=== PATIENT | male | born 1950 | race Caucasian/White ===

== ENCOUNTER 2021-03-22 13:13 | Emergency (ER) | payer OTHER ==
[2021-03-22 14:10] LABS: Absolute Lymphocytes (CBC) 1.8 K/uL (0.7-4.9); Hematocrit 44.7 % (39.6-49.0); Lymphocytes % 15.9 % (15.3-44.8); MPV 8.3 fL (7.6-11.3)
[2021-03-22 14:19] LABS: Protime INR 0.99
[2021-03-22 14:31] LABS: ALT/SGPT 29 U/L (12-78); AST/SGOT 22 U/L (15-37); Albumin 3.5 g/dL (3.4-5.0); Alkaline Phosphatase 75 U/L (45-117); BUN Blood Urea Nitrogen 33 mg/dL (7-18); Bicarbonate 27 mmol/L (21-32); Bilirubin Direct < 0.1 mg/dL (0-0.2); Bilirubin Total 0.4 mg/dL (0.2-1.0); Glucose Level 236 mg/dL (74-106); NT PRO-BNP 77 pg/mL (<125); Potassium 3.5 mmol/L (3.5-5.1); Protein, Total 6.9 g/dL (6.4-8.2); Sodium Level 139 mmol/L (136-145); Troponin (Emerg Dept Use Only) 0.03 ng/mL (0.0-0.045)
--- NOTE | 2021-03-22 15:35 | RAD REPORT ---
EXAM DESCRIPTION: RAD - Chest Single View - 03/22/2021 2:56 pm CLINICAL HISTORY: CHEST PAIN Chest pain. COMPARISON: No comparisons FINDINGS: Portable technique limits examination quality. The lungs are grossly clear. The heart is normal in size. No displaced fractures. IMPRESSION: No acute intrathoracic process suspected.
--- NOTE | 2021-03-22 20:27 | ER ---
Nurse's Notes [facility] Name: David Knight Age: 70 yrs Sex: Male : 1950 Arrival Date: 03/22/2021 Time: 13:19 Bed 10 Private MD: Diagnosis: Chest pain Presentation: 03/22 13:33 Chief complaint: Patient states: Midsternal chest pain radiates to Right arm that began vg1 yesterday. Denies NVD and SOB. States lightheartedness and and Right hand tingling. States currently has a AAA. Coronavirus screen: Vaccine status: Patient reports receiving the 2nd dose of the covid vaccine. Client denies travel out of the [place] in the last 14 days. Ebola Screen: Patient negative for fever greater than or equal to 101.5 degrees Fahrenheit, and additional compatible Ebola Virus Disease symptoms. Initial Sepsis Screen: Does the patient meet any 2 criteria? No. Patient's initial sepsis screen is negative. Does the patient have a suspected source of infection? No. Patient's initial sepsis screen is negative. Risk Assessment: Do you want to hurt yourself or someone else? Patient reports no desire to harm self or others. Onset of symptoms was March 21, 2021. 13:33 Method Of Arrival: Ambulatory vg1 13:33 Acuity: JONELLE 2 vg1 Triage Assessment: 13:36 General: Appears in no apparent distress. uncomfortable, Behavior is calm, cooperative. vg1 Pain: Complains of pain in mid-sternal area Pain radiates to right arm Pain currently is 6 out of 10 on a pain scale. Cardiovascular: Patient's skin is warm and dry. Historical: - Allergies: 13:36 No Known Allergies; vg1 - Home Meds: 13:36 glipizide Oral [Active]; atorvastatin oral [Active]; vg1 - PMHx: 13:36 Abdominal aortic aneurysm; Diabetes mellitus; Enlarged Prostate; vg1 - Immunization history:: Client reports receiving the 2nd dose of the Covid vaccine. - Social history:: Smoking status: Patient reports the use of cigarette tobacco products, denies chronic smoking, but will smoke occasionally. Screenin:48 Abuse screen: Denies threats or abuse. Denies injuries from another. Nutritional sm5 screening: No deficits noted. Tuberculosis screening: No symptoms or risk factors identified. Fall Risk None identified. Assessment: 20:49 Pain: Pain began 1 day ago. sm5 20:49 Pain: Complains of pain in right arm and chest and mid-sternal area. Neuro: No deficits sm5 noted. Level of Consciousness is awake, alert, Oriented to person, place, time, situation. Cardiovascular: Reports chest pain, Capillary refill < 3 seconds Patient's skin is warm and dry. Vital Signs: 13:33 BP 133 / 81; Pulse 84; Resp 18; Temp 97.7; Pulse Ox 97% ; Weight 101.15 kg; Height 5 vg1 ft. 10 in. (177.80 cm); Pain 6/10; 17:22 BP 120 / 76; Pulse 78; Resp 16; Temp 99.1(O); Pulse Ox 100% on R/A; mh5 20:44 BP 123 / 81; Pulse 71; Resp 16; Temp 98.2(O); Pulse Ox 98% ; lt3 13:33 Body Mass Index 32.00 (101.15 kg, 177.80 cm) vg1 ED Course: 13:19 Patient arrived in ED. am2 13:36 Triage completed. vg1 13:36 Arm band placed on. EKG completed in triage. Results shown to MD. vg1 13:56 Initial lab(s) drawn, by mn, sent to lab. vg1 14:55 XRAY Chest (1 view) In Process Unspecified. EDMS 16:26 Andrae Newton MD is Attending Physician. kdr 16:48 Troponin (Emerg Dept Use Only) Sent. mh5 16:48 Troponin (emerg Dept Use Only) Sent. 5 19:29 Attending Physician role handed off by Andrae Newton MD pkl 19:29 León Pimentel MD is Attending Physician. pkl 20:48 Patient has correct armband on for positive identification. Bed in low position. Call sm5 light in reach. Side rails up X2. monitor car operator on. Pulse ox on. NIBP on. 20:49 No provider procedures requiring assistance completed. Patient did not have IV access 5 during this emergency room visit. Patient maintains SpO2 saturation greater than 95% on room air. Administered Medications: No medications were administered Outcome: 20:26 Discharge ordered by . pkl 20:50 Discharged to home ambulatory. sm5 20:50 Condition: good 20:50 Discharge instructions given to patient, Instructed on discharge instructions, follow up and referral plans. Demonstrated understanding of instructions, follow-up care. 20:50 Patient left the ED. 5 Signatures: Dispatcher [employer] EDLeón Sosa MD MD pkl Rittger, Kevin, MD MD kdr Martinez, Maria 5 Norma Lopez Victoria, RN RN 1 Louise Durbin RN RN 5 Mary Carmen Garcia 3 Corrections: (The following items were deleted from the chart) 13:38 13:36 Home Meds: None; vg1 vg1 13:48 13:33 Acuity: JONELLE 3 vg1 vg1 20:49 20:49 Pain: Pain began [place] [id number]
--- NOTE | 2021-03-22 20:27 | EDPHYS ---
Physician Documentation [facility] Name: David Knight Age: 70 yrs Sex: Male : 1950 Arrival Date: 03/22/2021 Time: 13:19 Bed 10 Private MD: ED Physician León Pimentel HPI: 03/22 18:44 This 70 yrs old Male presents to ER via Ambulatory with complaints of Chest Pain. kdr 18:44 Patient states that he has been having chest pain in his sternum and right anterior kdr chest wall since yesterday. He has not had this kind of pain before. He denies nausea vomiting or shortness of breath. He has had an occasional episode of lightheadedness and tingling in his right hand but otherwise states that he has not had any other associated signs or symptoms. He also notes that he has been previously diagnosed with a AAA however it is less than 5 cm and is currently not being considered for intervention.. Historical: - Allergies: 13:36 No Known Allergies; vg1 - Home Meds: 13:36 glipizide Oral [Active]; atorvastatin oral [Active]; vg1 - PMHx: 13:36 Abdominal aortic aneurysm; Diabetes mellitus; Enlarged Prostate; vg1 - Immunization history:: Client reports receiving the 2nd dose of the Covid vaccine. - Social history:: Smoking status: Patient reports the use of cigarette tobacco products, denies chronic smoking, but will smoke occasionally. ROS: 18:44 Constitutional: Negative for fever, chills, and weight loss, Eyes: Negative for injury, kdr pain, redness, and discharge, ENT: Negative for injury, pain, and discharge, Neck: Negative for injury, pain, and swelling, Respiratory: Negative for shortness of breath, cough, wheezing, and pleuritic chest pain, Abdomen/GI: Negative for abdominal pain, nausea, vomiting, diarrhea, and constipation, Back: Negative for injury and pain, : Negative for injury, bleeding, discharge, and swelling, MS/Extremity: Negative for injury and deformity, Skin: Negative for injury, rash, and discoloration, Neuro: Negative for headache, weakness, numbness, tingling, and seizure activity. Psych: Negative for depression, anxiety, suicide ideation, homicidal ideation, and hallucinations, Allergy/Immunology: Negative for hives, rash, and allergies, Endocrine: Negative for neck swelling, polydipsia, polyuria, polyphagia, and marked weight changes, Hematologic/Lymphatic: Negative for swollen nodes, abnormal bleeding, and unusual bruising. 18:44 Cardiovascular: Positive for chest pain, Negative for edema, orthopnea, palpitations, paroxysmal nocturnal dyspnea. Exam: 18:44 Constitutional: This is a well developed, well nourished patient who is awake, alert, kdr and in no acute distress. Head/Face: Normocephalic, atraumatic. Eyes: Pupils equal round and reactive to light, extra-ocular motions intact. Lids and lashes normal. Conjunctiva and sclera are non-icteric and not injected. Cornea within normal limits. Periorbital areas with no swelling, redness, or edema. Neck: Trachea midline, no thyromegaly or masses palpated, and no cervical lymphadenopathy. Supple, full range of motion without nuchal rigidity, or vertebral point tenderness. No Meningismus. Chest/axilla: Normal chest wall appearance and motion. Nontender with no deformity. No lesions are appreciated. Cardiovascular: Regular rate and rhythm with a normal S1 and S2. No gallops, murmurs, or rubs. Normal PMI, no JVD. No pulse deficits. Respiratory: Lungs have equal breath sounds bilaterally, clear to auscultation and percussion. No rales, rhonchi or wheezes noted. No increased work of breathing, no retractions or nasal flaring. Abdomen/GI: Soft, non-tender, with normal bowel sounds. No distension or tympany. No guarding or rebound. No evidence of tenderness throughout. Back: No spinal tenderness. No costovertebral tenderness. Full range of motion. Skin: Warm, dry with normal turgor. Normal color with no rashes, no lesions, and no evidence of cellulitis. MS/ Extremity: Pulses equal, no cyanosis. Neurovascular intact. Full, normal range of motion. Neuro: Awake and alert, GCS 15, oriented to person, place, time, and situation. Cranial nerves II-XII grossly intact. Motor strength 5/5 in all extremities. Sensory grossly intact. Cerebellar exam normal. Normal gait. Psych: Awake, alert, with orientation to person, place and time. Behavior, mood, and affect are within normal limits. 18:44 Chest/axilla: Inspection: normal, Palpation: Patient has exacerbation of his right anterior chest wall discomfort with movement of his right arm upward. Vital Signs: 13:33 BP 133 / 81; Pulse 84; Resp 18; Temp 97.7; Pulse Ox 97% ; Weight 101.15 kg; Height 5 vg1 ft. 10 in. (177.80 cm); Pain 6/10; 17:22 BP 120 / 76; Pulse 78; Resp 16; Temp 99.1(O); Pulse Ox 100% on R/A; mh5 20:44 BP 123 / 81; Pulse 71; Resp 16; Temp 98.2(O); Pulse Ox 98% ; lt3 13:33 Body Mass Index 32.00 (101.15 kg, 177.80 cm) vg1 MDM: 18:44 Data reviewed: vital signs, nurses notes, lab test result(s), EKG, radiologic studies. kdr Counseling: I had a detailed discussion with the patient and/or guardian regarding: the historical points, exam findings, and any diagnostic results supporting the discharge/admit diagnosis, lab results, radiology results, the need for outpatient follow up. 19:29 Patient medically screened. pkl 03/22 13:49 Order name: Basic Metabolic Panel; Complete Time: 16:27 [facility] 03/22 13:49 Order name: CBC with Diff; Complete Time: 16:27 [facility] 03/22 13:49 Order name: LFT's; Complete Time: 16: [facility] 03/22 13:49 Order name: Magnesium; Complete Time: 16:27 [facility] 03/22 13:49 Order name: NT PRO-BNP; Complete Time: 16:27 [facility] 03/22 13:49 Order name: PT-INR; Complete Time: 16:27 [facility] 03/22 13:49 Order name: Troponin (emerg Dept Use Only); Complete Time: 16:27 [facility] 03/22 13:49 Order name: XRAY Chest (1 view); Complete Time: 16:27 [facility] 03/22 13:49 Order name: EKG; Complete Time: 13:50 [facility] 03/22 16:31 Order name: Troponin (emerg Dept Use Only) kdr 03/22 16:31 Order name: Troponin (Emerg Dept Use Only); Complete Time: 17:39 [facility] 03/22 19:36 Order name: Troponin (emerg Dept Use Only); Complete Time: 20:25 pkl 03/22 13:49 Order name: Cardiac monitoring; Complete Time: 16:48 vg1 03/22 13:49 Order name: EKG - Nurse/Tech; Complete Time: 13:50 vg1 03/22 13:49 Order name: IV Saline Lock; Complete Time: 16:49 vg1 03/22 13:49 Order name: Labs collected and sent; Complete Time: 13:56 vg1 03/22 13:49 Order name: O2 Per Protocol; Complete Time: 13:49 vg1 03/22 13:49 Order name: O2 Sat Monitoring; Complete Time: 13:49 vg1 Administered Medications: No medications were administered Disposition Summary: 03/22/21 20:26 Discharge Ordered Location: Home pkl Condition: Stable pkl Diagnosis - Chest pain pkl Followup: pkl - With: Private Physician - When: 1 - 2 days - Reason: Re-evaluation by your physician Forms: - Medication Reconciliation Form pkl - Thank You Letter pkl - Antibiotic Education pkl - Prescription Opioid Use pkl Signatures: Dispatcher [employer] EDMS León Pimentel MD MD pkl Andrae Newton MD MD kdr Garcia, Victoria RN RN vg1 Corrections: (The following items were deleted from the chart) 13:38 13:36 Home Meds: None; vg1 vg1 18:47 17:49 TROPONIN (EMERG DEPT USE ONLY)+[id number].[email or web address].BRZ ordered. EDMS EDMS
[2021-03-22 21:06] VITALS: BP 123/81; TEMP 98.2; O2SAT 98
== END 2021-03-22 20:50 | disposition home or self-care (01) ==
LOC: ER 13:13
DX: R07.9 Chest pain, unspecified (principal)
CPT/HCPCS: 36415; 71045; 80048; 80076; 83735; 83880; 84484; 85025; 85610; 93005; 99285